=== PATIENT | female | born 1990 | race African-American/Black ===

== ENCOUNTER 2022-04-12 15:10 | Emergency (ER) | payer MEDICAID ==
[2022-04-12] MEDS ORDERED: Ondansetron 4 MG Tab.DIS PO ONE (16:08)
[2022-04-12] MEDS ORDERED: Codeine/Promethazine 10-6.25 MG/5 ML Syrup 5 ML UD Cup PO ONE (16:08)
[2022-04-12 16:36] LABS: CORONAVIRUS COVID-19 NAA NEGATIVE (NEGATIVE)
== END 2022-04-12 17:50 | disposition home or self-care (01) ==
LOC: JD.ED 15:10
DX: J10.1 Influenza due to other identified influenza virus with other respiratory manifestations (principal); E11.9 Type 2 diabetes mellitus without complications; Z88.8 Allergy status to other drugs, medicaments and biological substances; Z86.16 Personal history of COVID-19; Z20.822 Contact with and (suspected) exposure to COVID-19
CPT/HCPCS: 0240U; 71045; 99283; A9270